=== PATIENT | female | born 1960 | race Caucasian/White ===

== ENCOUNTER 2016-05-23 07:53 | Emergency (ER) | payer OTHER ==
[~2016-05-23] VITALS: Ht 160 cm; Wt 66.0 kg
[~2016-05-23 07:53] MED LIST: LOSA25TA2 PO; NAPR220C2 PO; PROP60CA PO; SULF1TAB7 PO
[2016-05-23 07:54] VITALS: Ht 160 cm; Wt 66.0 kg
--- NOTE | 2016-05-23 10:17 | ERD ---
ER Documentation Chief Complaint Date/Time DATE: 05/23/16 TIME: 10:11 Chief Complaint bruise @ the right breast area HPI 56-year-old female presents to ED complaining of bruising in the medial aspect of the right breast. Patient stated that she first noticed it 6 days ago. She did not have any pain in the right breast. 2 days ago, she noticed a tender lump in the area of the bruising. She does not remember any trauma. Patient has history of rheumatoid arthritis. She had negative mammogram in February 2016. Denies any family history of breast cancer or any other type of cancer. Denies fever or chills. ROS All systems reviewed and are negative except as per history of present illness. Medications Home Meds Reported Medications Sulfamethoxazole-Trimethoprim* (Bactrim* DS) 1 Tab Tab, 1 TAB PO DAILY 11/19/12 Propranolol Hcl (Inderal LA) 60 Mg Capsr, 50 MG PO BID 11/14/12 Losartan Potassium* (Cozaar*) 25 Mg Tablet, 50 MG PO BID 11/14/12 Naproxen* (Aleve*) 220 Mg Capsule, 220 MG PO Y 10/12/12 Allergies Allergies: Coded Allergies: No Known Allergy (Unverified , 11/14/12) PMhx/Soc History of Surgery: Yes (breast reduction 83, appendectomy) Anesthesia Reaction: No Hx Neurological Disorder: No Hx Respiratory Disorders: No Hx Cardiac Disorders: Yes (htn) Hx Psychiatric Problems: No Hx Miscellaneous Medical Probl: Yes ( rheumatoid arthritis) Hx Alcohol Use: No Hx Substance Use: No Hx Tobacco Use: No Physical Exam Vitals Vital Signs Date Time Temp Pulse Resp B/P Pulse Ox O2 Delivery O2 Flow Rate FiO2 05/23/16 07:54 98.1 84 19 175/95 95 Physical Exam General impression: Well-developed, well-nourished. Alert, oriented, in no acute distress Head: Normocephalic, atraumatic. Respiration: Normal respiratory effort. Lungs clear to auscultate bilaterally. No wheezes, rales or rhonchi. Cardiovascular: Regular rate and rhythm. No murmurs or extra heart sounds. Abdomen: Abdomen normal to inspection. Nontender. No masses or organomegaly. Bowel sounds normal. Breasts: A 5 cm area of old ecchymosis noted on the medial aspect of the right breast. A 2-3 cm size firm, mobile mass noted within the border of the ecchymosis. Breast exam otherwise normal. No lymph nodes appreciated in the bilateral axilla. Neuro: Mental status normal, speech normal. STEEL FIXER grossly intact. Skin: Normal turgor. No rash or lesions. Psych: Normal mood and affect. Results 24 hrs PROCEDURE: Right breast ultrasound. CLINICAL INDICATION: Right breast palpable lesion and ecchymosis. TECHNIQUE: High-resolution sonography of the right breast was performed in the axial and sagittal planes. COMPARISON: No prior study is available for comparison. FINDINGS: At the site of the palpable lesion and ecchymosis in the 3 o'clock position of the right breast, there is a 3.3 x 0.8 x 1.1 cm complex mass with cystic and solid components. There is no other cystic or solid mass. The breast parenchyma is otherwise normal. IMPRESSION: 1. Complex mass with cystic and solid components measuring 3.3 x 0.8 x 1.1 cm in the 3 o'clock position of the right breast at the site of the palpable lesion and ecchymosis. This may be due to a hematoma. Neoplasm such as a papilloma cannot be excluded. 2. Any further management regarding this palpable lesion should be based upon clinical grounds. RPTAT: QQ .Slick Cunningham MD, MD Date Time Electronically viewed and signed by .Slick Cunningham MD, on 05/23/2016 12:21 .R/ CC: AGNIESZKA BLOCK LIMB DRIVER Procedures/MDM Well-appearing 56-year-old female presented to ED with contusion of the right breast. Breast ultrasound was obtained, a complex mass with cystic and solid components measuring 3.3 x 0.8 x 1.1 cm in the 3 o'clock position at the site of the palpable lesion and ecchymosis is noted on ultrasound. This may be due to hematoma. Neoplasm such as a papilloma cannot be excluded. Patient eloped before the ultrasound results had returned. I wish to the patient via telephone, and informed her of the ultrasound results. I advised patient to follow-up with her PCP for repeat ultrasound in about 2 weeks, and obtain a breast biopsy. Patient expressed understanding. Departure Diagnosis: Primary Impression: Contusion of breast, right Condition: Good AGNIESZKA BLOCK NP May 23, 2016 10:17
--- NOTE | 2016-05-23 12:21 | RADRPT ---
PROCEDURE: Right breast ultrasound. CLINICAL INDICATION: Right breast palpable lesion and ecchymosis. TECHNIQUE: High-resolution sonography of the right breast was performed in the axial and sagittal planes. COMPARISON: No prior study is available for comparison. FINDINGS: At the site of the palpable lesion and ecchymosis in the 3 o'clock position of the right breast, the re is a 3.3 x 0.8 x 1.1 cm complex mass with cystic and solid components. There is no other cystic or solid mass. The breast parenchyma is otherwise normal. IMPRESSION: 1. Complex mass with cystic and solid components measuring 3.3 x 0.8 x 1.1 cm in the 3 o'clock posi tion of the right breast at the site of the palpable lesion and ecchymosis. This may be due to a hem atoma. Neoplasm such as a papilloma cannot be excluded. 2. Any further management regarding this palpable lesion should be based upon clinical grounds. RPTAT: QQ .Slick Cunningham MD, MD Date Time Electronically viewed and signed by .Slick Cunningham MD, on 05/23/2016 12:21 .R/
== END 2016-05-24 06:29 | disposition left against medical advice (07) ==
LOC: FTE 07:53 → E/R 05-24 06:29
DX: S20.01XA Contusion of right breast, initial encounter (principal); I10 Essential (primary) hypertension; X58.XXXA Exposure to other specified factors, initial encounter; Y92.9 Unspecified place or not applicable
CPT/HCPCS: 76642; Z7502

== ENCOUNTER 2017-03-12 15:22 | Emergency (ER) | END 2017-03-12 18:46 | disposition home or self-care (01) ==

== ENCOUNTER 2018-04-12 21:45 | Emergency (ER) | payer OTHER ==
[~2018-04-12] VITALS: Ht 162.6 cm; Wt 66.8 kg
[~2018-04-12 21:45] MED LIST changes: +CIPR500T4 PO
[2018-04-12 21:54] VITALS: BP 147/75; PULSE 110; RESP 18; Ht 162.6 cm; Wt 66.8 kg
[2018-04-12] MEDS ORDERED: HYDR-4011 PO (23:07)
[2018-04-12] MEDS ORDERED: CIPR500T4 PO (23:07)
--- NOTE | 2018-04-12 23:10 | ERD ---
ER Documentation Chief Complaint Chief Complaint painful/burning urination/blood in urine x 1 day HPI 58-year-old female who presents complaining of dysuria and urinary frequency with some light spotting that began today. She has a history of frequent urinary tract infections in which she sees a urologist so she knows that she is getting a urine tract infection and wanted to get on top of this 1 early. She states Cipro works best for her. No fever. No nausea or vomiting. Secondarily she is complaining of pain in her upper extremities secondary to rheumatoid arth ritis. ROS All systems reviewed and are negative except as per history of present illness. Medications Home Meds Active Scripts Hydrocodone/Acetaminophen ([place] 5-325 Tablet) 1 Each Tablet, 1 EACH PO Q6, #15 TAB Prov:SEBASTIEN HERMOSILLO PA-C 04/12/18 Ciprofloxacin Hcl* (Ciprofloxacin Hcl*) 500 Mg Tablet, 500 MG PO BID, #14 TAB Prov:SEBASTIEN HERMOSILLO PA-C 04/12/18 Ciprofloxacin Hcl* (Ciprofloxacin Hcl*) 500 Mg Tablet, 500 MG PO BID for 10 Days, TAB Prov:ALENA AVINA 03/12/17 Reported Medications Sulfamethoxazole-Trimethoprim* (Bactrim* DS) 1 Tab Tab, 1 TAB PO DAILY 11/19/12 Propranolol Hcl (Inderal LA) 60 Mg Capsr, 50 MG PO BID 11/14/12 Losartan Potassium* (Cozaar*) 25 Mg Tablet, 50 MG PO BID 11/14/12 Naproxen* (Aleve*) 220 Mg Capsule, 220 MG PO PRN 10/12/12 Allergies Allergies: Coded Allergies: No Known Allergy (Unverified , 03/12/17) PMhx/Soc History of Surgery: Yes (breast surgery) Anesthesia Reaction: No Hx Neurological Disorder: No Hx Respiratory Disorders: No Hx Cardiac Disorders: Yes (htn) Hx Psychiatric Problems: No Hx Miscellaneous Medical Probl: Yes (uti) Hx Alcohol Use: No Hx Substance Use: No Hx Tobacco Use: No FmHx Family History: No diabetes Physical Exam Vitals Vital Signs Date Temp Pulse Resp B/P (MAP) Pulse Ox O2 O2 Flow FiO2 Time Delivery Rate 04/12/18 98.2 110 18 147/75 97 21:54 (99) Physical Exam INITIAL VITAL SIGNS: Reviewed by me GENERAL: Awake, alert and oriented x 4, well appearing, nontoxic, speaking in full sentences. No acute distress HEAD: Atraumatic NECK: Supple. No masses. Full range of motion. No meningismus. No midline tenderness. RESPIRATORY: Clear to auscultation bilaterally. Symmetric chest wall rise. No wheezing or rales. No accessory muscle use. CV: Regular rate and rhythm. No murmurs, rubs, or gallops. ABDOMEN: Soft, non-distended. Nontender. Negative [place]. Negative [place] point tenderness. No CVA tenderness bilaterally. No guarding. No rebound. EXTREMITIES: No clubbing or cyanosis. No edema. Moving all extremities normally. Procedures/MDM Urine sent for culture. Patient started on Cipro. Given small amount of [place] for her flareup of arthritic rheumatoid arthritis pain. Patient counseled regarding my diagnostic impression and care plan. Prior to discharge all questions answered. Pt agrees with treatment plan and understands strict return precautions. Pt is instructed to follow up with primary care provider within 24- 48 hours. Precautionary instructions provided including instructions to return to the ER if not improving or for any worsening or changing symptoms or concerns. Departure Diagnosis: Primary Impression: Dysuria Condition: Stable Patient Instructions: Dysuria Additional Instructions: Call your primary care doctor TOMORROW for an appointment during the next 1-2 days.See the doctor sooner or return here if your condition worsens before your appointment time. SEBASTIEN HERMOSILLO PA-C Apr 12, 2018 23:10
== END 2018-04-12 23:50 | disposition home or self-care (01) ==
LOC: FTE 21:45
DX: R30.0 Dysuria (principal); I10 Essential (primary) hypertension
CPT/HCPCS: 81003; 87086; Z7502; 99283

== ENCOUNTER 2018-04-22 17:43 | Emergency (ER) | payer OTHER ==
[~2018-04-22] VITALS: Ht 167.6 cm; Wt 66.6 kg
[~2018-04-22 17:43] MED LIST changes: +HYDR-4011 PO
[2018-04-22 17:46] VITALS: Ht 167.6 cm; Wt 66.6 kg
[2018-04-22 19:21] VITALS: BP 189/88; PULSE 90; RESP 20
[2018-04-22] MEDS ORDERED: CIPR500T4 PO (19:22)
--- NOTE | 2018-04-22 19:25 | ERD ---
ER Documentation Chief Complaint Chief Complaint Complains of urine problems Hx of UTI HPI 58-year-old female who presents to the emergency room complaining of dysuria urgency and frequency. The patient states that several weeks ago she was started on Cipro but a very short course. She states that she was recently started on Bactrim and still has symptoms of urinary frequency urgency and dysuria. She states recurrent episodes of cystitis. The only thing that usually works for her is 14 days of ciprofloxacin. She is requesting a prescription. She denies any fevers chills or flank pain. Blood pressure noted to be elevated no chest pain or strokelike symptoms. Patient has followed up with a urologist but not recently. ROS All systems reviewed and are negative except as per history of present illness. Medications Home Meds Active Scripts Ciprofloxacin Hcl* (Ciprofloxacin Hcl*) 500 Mg Tablet, 500 MG PO BID for 14 Days, TAB Prov:JOSE A GIL MD 04/22/18 Hydrocodone/Acetaminophen ([place] 5-325 Tablet) 1 Each Tablet, 1 EACH PO Q6, #15 TAB Prov:SEBASTIEN HERMOSILLO PA-C 04/12/18 Ciprofloxacin Hcl* (Ciprofloxacin Hcl*) 500 Mg Tablet, 500 MG PO BID, #14 TAB Prov:SEBASTIEN HERMOSILLO PA-C 04/12/18 Ciprofloxacin Hcl* (Ciprofloxacin Hcl*) 500 Mg Tablet, 500 MG PO BID for 10 Days, TAB Prov:ALENA AVINA 03/12/17 Reported Medications Sulfamethoxazole-Trimethoprim* (Bactrim* DS) 1 Tab Tab, 1 TAB PO DAILY 11/19/12 Propranolol Hcl (Inderal LA) 60 Mg Capsr, 50 MG PO BID 11/14/12 Losartan Potassium* (Cozaar*) 25 Mg Tablet, 50 MG PO BID 11/14/12 Naproxen* (Aleve*) 220 Mg Capsule, 220 MG PO PRN 10/12/12 Allergies Allergies: Coded Allergies: No Known Allergy (Unverified , 03/12/17) PMhx/Soc History of Surgery: Yes (breast surgery) Anesthesia Reaction: No Hx Neurological Disorder: No Hx Respiratory Disorders: No Hx Cardiac Disorders: Yes (htn) Hx Psychiatric Problems: No Hx Miscellaneous Medical Probl: Yes (uti) Hx Alcohol Use: No Hx Substance Use: No Hx Tobacco Use: No FmHx Family History: No diabetes Physical Exam Vitals Vital Signs Date Temp Pulse Resp B/P (MAP) Pulse Ox O2 O2 Flow FiO2 Time Delivery Rate 04/22/18 97.0 90 20 189/88 98 Room Air 19:21 (121) 04/22/18 97.0 88 20 201/88 98 17:46 (125) Physical Exam General: Well developed, well nourished, no acute distress Head: Normocephalic, atraumatic. Eyes: Pupils equally reactive, EOM intact ENT: Moist mucous membranes Neck: Supple, no lymphadenopathy Respiratory: Lungs clear bilaterally, no distress Cardiovascular: RRR, no murmurs, rubs, or gallops Abdominal: Soft, non-tender, non-distended, no peritoneal signs Back: No CVA tenderness : Deferred MSK: No edema, no unilateral swelling, 5/5 strength Neurologic: Alert and oriented, moving all extremities, normal speech, no focal weakness, no cerebellar signs Skin: No rash Psych: Normal mood Procedures/MDM The patient is requesting for a 2-week prescription for ciprofloxacin. We d iscussed the risk benefits and alternatives. I believe it is very possible that the patient has interstitial cystitis rather than recurrent urinary tract infections. I strongly recommend urology follow-up. Most recent culture results was mixed organisms. I believe a urinalysis and urine culture today would be reasonable. The patient is currently on Bactrim. I do not believe t his is consistent with pyelonephritis or systemic infection that would warrant inpatient hospitalization. This is a subacute and chronic issue for the patient. Patient's blood pressure is elevated but she states that she did not take her blood pressure medication today. No symptoms and no evidence of endorgan dysfunction. The patient can be safely discharged with strict return precautions discussed and understood by the patient. The patient does not have an identifiable emergent medical condition that warrants inpatient hospitalization at this time. The patient is deemed safe for discharge with outpatient follow-up. We discussed follow up with the patient's primary care doctor within 24 to 48 hours as needed. We also discussed return to the emergency room for worsening symptoms or worsening condition. Outpatient referral: Urology Discharge Medications: Cipro Departure Diagnosis: Primary Impression: UTI (urinary tract infection) Urinary tract infection type: acute cystitis Hematuria presence: without hematuria Qualified Codes: N30.00 - Acute cystitis without hematuria Additional Impressions: Interstitial cystitis Asymptomatic hypertensive urgency Condition: Stable Patient Instructions: Understanding Urinary Tract Infections (UTIs) Referrals: PRISCILLA OMALLEY MD Additional Instructions: Call your primary care doctor TOMORROW for an appointment during the next 1 WEEK.Tell the admin secretary that you were referred from this facility.See the doctor sooner or return here if your condition worsens before your appointment time. JOSE A GIL MD Apr 22, 2018 19:25
== END 2018-04-22 19:52 | disposition home or self-care (01) ==
LOC: E/R 17:43
DX: N30.10 Interstitial cystitis (chronic) without hematuria (principal); I10 Essential (primary) hypertension
CPT/HCPCS: 81001; 87086; Z7502; 99283

== ENCOUNTER 2018-05-06 18:30 | Emergency (ER) | payer OTHER ==
[~2018-05-06] VITALS: Wt 68.1 kg
--- NOTE | 2018-05-06 23:15 | ERD ---
ER Documentation Chief Complaint Chief Complaint bib self, cc: hematuria and dysuria for 2 weeks, HPI 58-year-old female, presents the emergency department, complaining of 2 weeks with persistent dysuria and hematuria, associated with pelvic pressure. Otherwise no fever, no chills, no nausea or vomiting. ROS All systems reviewed and are negative except as per history of present illness. Medications Home Meds Active Scripts Hydrocodone/Acetaminophen ([place] 5-325 Tablet) 1 Each Tablet, 1 TAB PO BID PRN for PAIN, #8 TAB Prov:PATI SHAH MD 05/07/18 Phenazopyridine Hcl* (Pyridium*) 200 Mg Tab, 200 MG PO TID PRN for URINARY PAIN, #6 TAB Prov:PATI SHAH MD 05/07/18 Nitrofurantoin Monohyd Macrocr* (Macrobid*) 100 Mg Capsr, 100 MG PO BID for 14 Days, #28 CAP Prov:PATI SHAH MD 05/07/18 Ciprofloxacin Hcl* (Ciprofloxacin Hcl*) 500 Mg Tablet, 500 MG PO BID for 14 Days, TAB Prov:JOSE A GIL MD 04/22/18 Hydrocodone/Acetaminophen ([place] 5-325 Tablet) 1 Each Tablet, 1 EACH PO Q6, #15 TAB Prov:SEBASTIEN HERMOSILLO PA-C 04/12/18 Ciprofloxacin Hcl* (Ciprofloxacin Hcl*) 500 Mg Tablet, 500 MG PO BID, #14 TAB Prov:SEBASTIEN HERMOSILLO PA-C 04/12/18 Ciprofloxacin Hcl* (Ciprofloxacin Hcl*) 500 Mg Tablet, 500 MG PO BID for 10 Days, TAB Prov:ALENA AVINA 03/12/17 Reported Medications Sulfamethoxazole-Trimethoprim* (Bactrim* DS) 1 Tab Tab, 1 TAB PO DAILY 11/19/12 Propranolol Hcl (Inderal LA) 60 Mg Capsr, 50 MG PO BID 11/14/12 Losartan Potassium* (Cozaar*) 25 Mg Tablet, 50 MG PO BID 11/14/12 Naproxen* (Aleve*) 220 Mg Capsule, 220 MG PO PRN 10/12/12 Allergies Allergies: Coded Allergies: No Known Allergy (Unverified , 03/12/17) PMhx/Soc History of Surgery: Yes (breast surgery) Anesthesia Reaction: No Hx Neurological Disorder: No Hx Respiratory Disorders: No Hx Cardiac Disorders: Yes (htn) Hx Psychiatric Problems: No Hx Miscellaneous Medical Probl: Yes (uti) Hx Alcohol Use: No Hx Substance Use: No Hx Tobacco Use: No Physical Exam Vitals Vital Signs Date Temp Pulse Resp B/P (MAP) Pulse Ox O2 O2 Flow FiO2 Time Delivery Rate 05/06/18 98.3 102 20 121/93 100 19:17 (102) Physical Exam Const: No acute distress Head: Atraumatic Eyes: Normal Conjunctiva ENT: Normal External Ears, Nose and Mouth. Neck: Full range of motion. No meningismus. Resp: Clear to auscultation bilaterally Cardio: Regular rate and rhythm, no murmurs Abd: Soft, non tender, non distended. Normal bowel sounds Skin: No petechiae or rashes Back: No midline or flank tenderness Ext: No cyanosis, or edema Neur: Awake and alert Psych: Normal Mood and Affect Result Diagram: 05/06/18 2325 05/06/18 2325 Results 24 hrs Laboratory Tests Test 05/06/18 23:25 White Blood Count 12.3 10^3/ul Red Blood Count 3.43 10^6/ul Hemoglobin 11.7 g/dl Hematocrit 36.2 % Mean Corpuscular Volume 105.5 fl Mean Corpuscular Hemoglobin 34.1 pg Mean Corpuscular Hemoglobin Concent 32.3 g/dl Red Cell Distribution Width 14.2 % Platelet Count 344 10^3/UL Mean Platelet Volume 8.8 fl Immature Granulocytes % 1.300 % Neutrophils % 61.3 % Lymphocytes % 26.2 % Monocytes % 7.9 % Eosinophils % 2.4 % Basophils % 0.9 % Nucleated Red Blood Cells % 0.0 /100WBC Immature Granulocytes # 0.160 10^3/ul Neutrophils # 7.5 10^3/ul Lymphocytes # 3.2 10^3/ul Monocytes # 1.0 10^3/ul Eosinophils # 0.3 10^3/ul Basophils # 0.1 10^3/ul Nucleated Red Blood Cells # 0.0 10^3/ul Urine Color RED Urine Clarity CLOUDY Urine pH 5.0 Urine Specific [place] 1.025 Urine Ketones NEGATIVE mg/dL Urine Nitrite NEGATIVE mg/dL Urine Bilirubin NEGATIVE mg/dL Urine Urobilinogen NEGATIVE mg/dL Urine Leukocyte Esterase TRACE Naya/ul Urine Microscopic RBC > 182 /HPF Urine Microscopic WBC 27 /HPF Urine Squamous Epithelial Cells FEW /HPF Urine Bacteria FEW /HPF Urine Hemoglobin 3+ mg/dL Urine Glucose NEGATIVE mg/dL Urine Total Protein 2+ mg/dl Sodium Level 142 mmol/L Potassium Level 3.5 mmol/L Chloride Level 113 mmol/L Carbon Dioxide Level 17 mmol/L Anion Gap 12 Blood Urea Nitrogen 20 mg/dl Creatinine 0.63 mg/dl Est Glomerular Filtrat Rate mL/min > 60 mL/min Glucose Level 97 mg/dl Calcium Level 9.1 mg/dl Current Medications Medications Dose Sig/Hector Start Time Status Last (Trade) Ordered Route PRN Stop Time Admin Dose Reason Admin Sodium 1,000 ml @ Q1H ONCE 05/06/18 DC 05/06/18 Chloride 1,000 mls/hr IV 23:30 05/07/18 23:37 00:29 Morphine 2 mg ONCE STAT 05/06/18 DC 05/06/18 Sulfate IV 23:16 05/06/18 23:36 (morphine) 23:17 Ceftriaxone 50 ml @ ONCE ONCE 05/06/18 DC 05/06/18 Sodium 100 mls/hr IVPB 23:30 05/06/18 23:36 23:59 200 mg ONCE ONCE 05/06/18 DC 05/06/18 Phenazopyridi PO 23:30 05/06/18 23:36 ne HCl 23:31 (Pyridium) Sodium 100 ml @ ud STK-MED 05/07/18 DC 05/07/18 Chloride ONCE .ROUTE 00:43 05/07/18 01:06 00:44 Iohexol 150 ml STK-MED 05/07/18 DC 05/07/18 (Omnipaque ONCE .ROUTE 00:43 05/07/18 01:06 300mg/ ml) 00:44 DIAGNOSTIC IMAGING REPORT Patient: SERENA SAWYER : 1960 Age: 58 Sex: F MR #: [id number] DOS: 05/06/182311 Ordering MD: PATI SHAH MD Location: [facility] Room/Bed: PROCEDURE: CT Abdomen and pelvis with contrast. CLINICAL INDICATION: Abdominal pain. TECHNIQUE: CT scan of the abdomen and pelvis with contrast was performed on a multi-detector high-resolution CT scanner. The patient was scanned following the uncomplicated administration of 100 cc of Omnipaque 300 intravenous contrast. Coronal and sagittal reformatted images were obtained from the axial source images. Images were reviewed on a high-resolution PACS workstation. DICOM images are available. One or more of the following dose reduction techniques were used: - Automated exposure control. - Adjustment of the mA and/or kV according to patient size. - Use of iterative reconstruction technique. Exam CTD/vol = 14.73 mGy. Total exam DLP = 831.29 mGy-cm. COMPARISON: 10/30/2012. FINDINGS: Evaluation of the lung bases demonstrates mild bibasilar atelectasis. Abdomen: The liver is normal in size. There is a cyst within the left lobe of the liver measuring 1.5 x 1.1 cm. There is no dilatation of the biliary tree. The gallbladder is not distended. The spleen, pancreas and bilateral adrenal glands are within normal limits. Bilateral kidneys are normal in size with symmetric enhancement. There are small renal cysts bilaterally. There is no hydronephrosis or hydroureter. There is no retroperitoneal adenopathy. The ab dominal aorta is of normal caliber. There is no abnormal bowel wall thickening or distension. There is no bowel obstruction or free air. The appendix is not visualized. There are few scattered colonic diverticuli without evidence of diverticulitis. There is no ascites. Pelvis: The bladder is unremarkable. The uterus and adnexa are within normal limits. There is no significant pelvic adenopathy or free fluid. Evaluation of the osseous structures demonstrates a lucent lesion along the anterior aspect of the left femoral head and neck pain with surrounding stranding and small joint effusion. There is a lucent lesion within the left superior acetabulum. There is old fracture/deformity of the right inferior pubic ramus. IMPRESSION: Lucent lesions within the left superior acetabulum and femoral head and neck with left hip joint space effusion and soft tissue swelling, new compared with 10/30/2012. Findings could represent degenerative subchondral cysts. Clinical correlation and follow-up is recommended to exclude osteomyelitis and septic joint. Few scattered colonic diverticuli without evidence of diverticulitis. Stable small hepatic cyst. Bilateral small renal cysts. Otherwise no acute abnormality identified within the abdomen and pelvis. .Vel Dobbins MD, MD Date Time Electronically viewed and signed by .Vel Dobbins MD, MD on 05/07/2018 01:27 Procedures/MDM Differential diagnosis include but not limited to: UTI, colitis, gastroenteritis, kidney stones, irritable bowel syndrome, inflammatory bowel syndrome, malabsorption syndrome, cholelithiasis, food intolerance, medication side effect, pancreatitis, diverticulitis, bowel obstruction. Low suspicion for acute abdomen Physical examination and clinical presentation consistent most likely with urinary tract infection. Results and clinical impression discussed with patient who agrees with management. The patient is stable to be treated outpatient and will be discharged home, some side effects of prescribed medications (headache, rash, nausea, vomiting, diarrhea, drowsiness, habituation, bleeding, hypertension, interactions with other medications) were reviewed. The patient was instructed to follow up with the primary care provider in the next 48h. If symptoms persist, worsen or new symptoms develop, then patient should return to the ED immediately. Instructions explained and given directly by me to the patient with acknowledgment and demonstrated understanding. Disclaimer: Inadvertent spelling and grammatical errors are likely due to EHR/dictation software use and do not reflect on the overall quality of patient care. Also, please note that the electronic time recorded on this note does not necessarily reflect the actual time of the patient encounter. Departure Diagnosis: Primary Impression: UTI (urinary tract infection) Condition: Stable Patient Instructions: Understanding Urinary Tract Infections (UTIs) Additional Instructions: Thank you very much for allowing us to participate in your care. Your health and safety is our top priority at [facility]. Call your primary care doctor TOMORROW for an appointment during the next 2-4 days and bring all the information and medications prescribed. Have prescriptions filled and follow precisely the directions on the label. If the symptoms get worse and your provider is unavailable, return to the E mergency Department immediately. PATI SHAH MD May 06, 2018 23:15
[2018-05-06] MEDS ORDERED: morphine 2 MG INJ IV STA (23:16)
[2018-05-06] MEDS ORDERED: CEFTRIAXONE 1 GM/50 ML (PMX) 50 ML IVPB ONE (23:30)
[2018-05-06] MEDS ORDERED: PHENAZOPYRIDINE 100 MG TAB PO ONE (23:30)
[2018-05-06] MEDS ORDERED: SOD CHLORIDE 0.9% 1,000 ML IV ONE (23:30)
[2018-05-07] MEDS ORDERED: IOHEXOL 300MG/ML 150 ML BTL ONE (00:43)
[2018-05-07] MEDS ORDERED: SOD CHLORIDE 0.9% 100 ML ONE (00:43)
[2018-05-07] MEDS ORDERED: NITR-58 PO (01:53)
[2018-05-07] MEDS ORDERED: PHEN-538 PO (01:53)
[2018-05-07] MEDS ORDERED: HYDR-4011 PO (01:53)
[2018-05-07 02:11] VITALS: BP 144/89; PULSE 80; RESP 19
== END 2018-05-07 02:14 | disposition home or self-care (01) ==
LOC: FTE 18:30
DX: N39.0 Urinary tract infection, site not specified (principal); I10 Essential (primary) hypertension
CPT/HCPCS: 36415; 74177; 80048; 81001; 85025; 87086; 96365; 96366; 96375; J0696; J2270; J7030; Q9967; Z7502; Z7610

== ENCOUNTER 2018-10-02 23:26 | Emergency (ER) | payer OTHER ==
[~2018-10-02] VITALS: Ht 162.6 cm; Wt 63.4 kg
[~2018-10-02 23:26] MED LIST changes: +AMOX1TAB10 PO; +NALO4SPR NS; +NITR-58 PO; +PHEN-538 PO
[2018-10-02 23:28] VITALS: BP 165/74; PULSE 81; RESP 18; Ht 162.6 cm; Wt 63.4 kg
[2018-10-03] MEDS ORDERED: METHYLPREDNISOLONE 125 MG INJ IM ONE (01:30)
[2018-10-03] MEDS ORDERED: HYDROCODONE/APAP (5/325) TAB PO ONE (01:30)
--- NOTE | 2018-10-05 23:37 | ERD ---
ER Documentation Chief Complaint Chief Complaint pain left hip on and off x 2 years, worse today, also c/o painful urination HPI 58yo F presents to the ED with multiple complaints. Pt complaining of left hip pain off and on x 2 years with associated knee pain increasing in severity over past few days. Pt scheduled for surgery on October 31, and states to receive cortisone injection to the joints for her pain. She is requesting a cortisone i njection at this time. Pt also complaining of dysuria and decreased urinary output x 3 days. She notes a hx of recurrent UTI's, and states presentation often similar to her current presentation. Pt also believes to have sustained a dog bite 2-3 days ago, however, states to "not remember if the dog bit" her." She states she was feeding dog and believes he may have bit her left hand, episode happened so quickly she does not remember. Pt notes her tetanus is UTD, which she received last year. She denies fevers, chills, nausea, vomiting, or swelling at site of bite. Pt is able to ambulate without loss of function to the effected extremities. ROS All systems reviewed and are negative except as per history of present illness. Medications Home Meds Active Scripts Amoxicillin/Potassium Clav (Amox-Clav 875-125 mg Tablet) 875-125 mg Tab, 1 TAB PO BID for 10 Days, #20 TAB Prov:SOULEYMANE NICHOLE PA-C 10/03/18 Naloxone HCl nasal spray (Narcan 4 mg/0.1 mL nasal) 4 Mg [place], 4 MG NS .Q2-3MIN for OPIOID OVERDOSE, #2 SPRAY 0 Refills [place] 0.1 mL into one nostril. Repeat with second device into other nostril after 2-3 minutes if no or minimal response Prov:SOULEYMANE NICHOLE PA-C 10/03/18 Hydrocodone/Acetaminophen ([place] 5-325 Tablet) 1 Each Tablet, 1 TAB PO Q6H PRN for PAIN, #12 TAB Prov:SOULEYMANE NICHOLE PA-C 10/03/18 Hydrocodone/Acetaminophen ([place] 5-325 Tablet) 1 Each Tablet, 1 TAB PO BID PRN for PAIN, #8 TAB Prov:PATI SHAH MD 05/07/18 Phenazopyridine Hcl* (Pyridium*) 200 Mg Tab, 200 MG PO TID PRN for URINARY PAIN, #6 TAB Prov:PATI SHAH MD 05/07/18 Nitrofurantoin Monohyd Macrocr* (Macrobid*) 100 Mg Capsr, 100 MG PO BID for 14 Days, #28 CAP Prov:PATI SHAH MD 05/07/18 Ciprofloxacin Hcl* (Ciprofloxacin Hcl*) 500 Mg Tablet, 500 MG PO BID for 14 Days, TAB Prov:JOSE A GIL MD 04/22/18 Hydrocodone/Acetaminophen ([place] 5-325 Tablet) 1 Each Tablet, 1 EACH PO Q6, #15 TAB Prov:SEBASTIEN HERMOSILLO PA-C 04/12/18 Ciprofloxacin Hcl* (Ciprofloxacin Hcl*) 500 Mg Tablet, 500 MG PO BID, #14 TAB Prov:SEBASTIEN HERMOSILLO PA-C 04/12/18 Ciprofloxacin Hcl* (Ciprofloxacin Hcl*) 500 Mg Tablet, 500 MG PO BID for 10 Days, TAB Prov:ALENA AVINA 03/12/17 Reported Medications Sulfamethoxazole-Trimethoprim* (Bactrim* DS) 1 Tab Tab, 1 TAB PO DAILY 11/19/12 Propranolol Hcl (Inderal LA) 60 Mg Capsr, 50 MG PO BID 11/14/12 Losartan Potassium* (Cozaar*) 25 Mg Tablet, 50 MG PO BID 11/14/12 Naproxen* (Aleve*) 220 Mg Capsule, 220 MG PO PRN 10/12/12 Discontinued Scripts Nitrofurantoin Monohyd Macrocr* (Macrobid*) 100 Mg Capsr, 100 MG PO BID for 7 Days, #14 CAP Prov:SOULEYMANE NICHOLE PA-C 10/03/18 Allergies Allergies: Coded Allergies: No Known Allergy (Unverified , 03/12/17) PMhx/Soc History of Surgery: Yes (C[place]ar Breast Reduction) Anesthesia Reaction: No Hx Neurological Disorder: No Hx Respiratory Disorders: No Hx Cardiac Disorders: Yes (HTN) Hx Psychiatric Problems: No Hx Miscellaneous Medical Probl: Yes (Chronic UTI) Hx Alcohol Use: No Hx Substance Use: No Hx Tobacco Use: No Smoking Status: Never smoker FmHx Family History: No diabetes, No coronary disease, No other Physical Exam Vitals Vital Signs Date Temp Pulse Resp B/P (MAP) Pulse Ox O2 O2 Flow FiO2 Time Delivery Rate 10/02/18 97.9 81 18 165/74 98 23:28 (104) Physical Exam Const: No acute distress Head: Atraumatic Eyes: Normal Conjunctiva ENT: Normal External Ears, Nose and Mouth. Neck: Full range of motion. No meningismus. Resp: Clear to auscultation bilaterally Cardio: Regular rate and rhythm, no murmurs Abd: Soft, non tender, non distended. Normal bowel sounds Skin: No petechiae or rashes. Superficial abrasion to the volar aspect of the left 5th metacarpal. No visible puncture wound. No warmth, no discharge, no surrounding erythema, no linear streaking. No fluctuance, no induration. Back: No midline or flank tenderness. Full ROM. Ext: No cyanosis, or edema. TPP left hip and knee, pain with passive ROM. Able to bear weight and ambulate appropriately. Pedal pulse 2+. Sensation intact to light touch. No erythema and calf tenderness. Negative avelino. Neur: Awake and alert Psych: Normal Mood and Affect Results 24 hrs Laboratory Tests Test 10/03/18 01:28 10/03/18 01:36 Urine Color YELLOW Urine Clarity CLEAR Urine pH 6.0 Urine Specific [place] 1.009 Urine Ketones NEGATIVE mg/dL Urine Nitrite NEGATIVE mg/dL Urine Bilirubin NEGATIVE mg/dL Urine Urobilinogen NEGATIVE mg/dL Urine Leukocyte Esterase TRACE Naya/ul Urine Microscopic RBC 2 /HPF Urine Microscopic WBC 13 /HPF Urine Squamous Epithelial Cells FEW /HPF Urine Bacteria FEW /HPF Urine Mucus FEW /HPF Urine Hemoglobin NEGATIVE mg/dL Urine Glucose NEGATIVE mg/dL Urine Total Protein NEGATIVE mg/dl Bedside Urine pH (LAB) 6.5 Bedside Urine Protein (LAB) Negative Bedside Urine Glucose (UA) Negative Bedside Urine Ketones (LAB) Negative Bedside Urine Blood Trace-lysed Bedside Urine Nitrite (LAB) Negative Bedside Urine Leukocyte Esterase (L Trace Current Medications Medications Dose Sig/Hector Start Time Status Last (Trade) Ordered Route PRN Stop Time Admin Dose Reason Admin 125 mg ONCE ONCE 10/03/18 DC 10/03/18 Methylprednis IM 01:30 10/03/18 01:42 olone Sodium 01:31 Succinate (Solu-Medrol) 1 tab ONCE ONCE 10/03/18 DC 10/03/18 Acetaminophen PO 01:30 10/03/18 01:42 / 01:31 Hydrocodone Bitart ([place] ()) Procedures/MDM MDM: This is a 58yo F who presents for chronic left hip and knee pain, UTI, and dog bite. Pt requesting cortisone joint injection at this time, I have advised her cortisone joint injection would need to be done by her current pain medicine physician or orthopedist, however, I could provide short course medications to help her pain while in ED. Pt unable to tolerate NSAIDS as she states to have "a hole" in her stomach. Pt received Solu-medrol injection and norco while in ED with improvement in pain upon reevaluation. Pt UA also showed traced leukocyte. I will be treating pt UTI and Dog bite with Augmentin so as to avoid overuse of antibiotics as pt has a hx of recurrent abx use. At this time I do not suspect fracture, septic joint, cellulitis, pyelonephritis, or other acute emergent process. Pt will be discharged home at this time with short course [place] for pain, CURES negative for recent opioid prescription and advised to f/u with pain management within the next 1-2 days. I have counseled regarding strict ED return precautions and pt is to return immediately if symptoms persist or worsen, or if new symptoms develop. Pt expressed verbal understanding and agreement to treatment plan. All questions addressed and answered. Departure Diagnosis: Primary Impression: Hip pain Laterality: left Qualified Codes: M25.552 - Pain in left hip Additional Impressions: Urinary tract infection Urinary tract infection type: acute cystitis Hematuria presence: without hematuria Qualified Codes: N30.00 - Acute cystitis without hematuria Dog bite Encounter type: initial encounter Qualified Codes: W54.0XXA - Bitten by dog, initial encounter Knee pain Chronicity: chronic Laterality: left Qualified Codes: M25.562 - Pain in left knee; G89.29 - Other chronic pain Condition: Stable Patient Instructions: Hip Precautions, Understanding Urinary Tract Infections (UTIs), Dog Bite SOULEYMANE NICHOLE PA-C Oct 05, 2018 23:37
== END 2018-10-03 02:32 | disposition home or self-care (01) ==
LOC: FTE 23:26
DX: M25.552 Pain in left hip (principal); I10 Essential (primary) hypertension; N30.00 Acute cystitis without hematuria; M25.562 Pain in left knee; S61.257A Open bite of left little finger without damage to nail, initial encounter; W54.0XXA Bitten by dog, initial encounter; Y92.9 Unspecified place or not applicable
CPT/HCPCS: 81001; 96372; J2930; Z7502; Z7610; 81003

== ENCOUNTER 2018-10-31 05:52 | Inpatient (IN) | payer OTHER ==
[2018-10-31] VITALS (30 sets, daily range): BP systolic 113–157; BP diastolic 57–86; PULSE 76–90; RESP 10–37; Ht 162.6 cm; Wt 62.8 kg
[~2018-10-31] VITALS: Ht 162.6 cm; Wt 62.8 kg
[~2018-10-31 05:52] MED LIST changes: +ATEN50TA PO; +ESTA1TAB PO; +FOLI-49 PO; +HYDR200T39 PO; +LOSA25TA12 PO; +MET25 PO; +PRED10TA PO
[2018-10-31] MEDS ORDERED: GABAPENTIN 300 MG CAP PO ONE (06:00)
[2018-10-31] MEDS ORDERED: CEFAZOLIN 2 GM/50 ML (PMX) 50 ML IVPB ONE (06:00)
[2018-10-31] MEDS ORDERED: LACTATED RINGER'S 1,000 ML IV SCH (06:00)
[2018-10-31] MEDS ORDERED: DEXAMETHASONE 1 MG TAB PO ONE (06:00)
[2018-10-31] MEDS ORDERED: TRANEXAMIC ACID 1GM/100ML(PMX) 100 ML IVPB ONE (06:00)
[2018-10-31] MEDS ORDERED: PROPOFOL 20 ML ONE (06:56)
[2018-10-31] MEDS ORDERED: CEFAZOLIN 1 GM INJ ONE (06:56)
[2018-10-31] MEDS ORDERED: MIDAZOLAM 1 MG/ML 2 ML INJ ONE (06:56)
[2018-10-31] MEDS ORDERED: FENTAnyl 50 MCG/ML VIAL ONE (06:56)
[2018-10-31] MEDS ORDERED: EPHEDrine 25 MG/5 ML SYG ONE (06:56)
[2018-10-31] MEDS ORDERED: morphine SULFATE/PF (10 MG/10 ML) INJ ONE (06:56)
[2018-10-31] MEDS ORDERED: PHENYLephrine (100 MCG/ML) 5ML SYG ONE (06:56)
[2018-10-31] MEDS ORDERED: ONDANSETRON 4 MG INJ ONE (06:57)
[2018-10-31] MEDS ORDERED: TRANEXAMIC ACID 1GM/100ML(PMX) 100 ML ONE ×2 (06:57)
[2018-10-31] MEDS ORDERED: HYDROCORTISONE 100 MG INJ ONE (06:57)
[2018-10-31] MEDS ORDERED: CA CHLORIDE (GM) 10% 10 ML INJ ONE (07:27)
[2018-10-31] MEDS ORDERED: THROMBIN 5000 UNIT (RECOTHROM) VIAL ONE (07:27)
[2018-10-31] MEDS ORDERED: POLYMYXIN/BACITRACIN 1L IRRIG ONE (07:27)
[2018-10-31] MEDS ORDERED: BUPIVACAINE 0.5% (SDV) 30 ML, morphine SULFATE (PF) 8 MG, EPINEPHrine 0.3 MG, KETOROLAC... IRR SCH ×7 (07:30)
[2018-10-31] MEDS ORDERED: SOD CHLORIDE 0.9% 100 ML, TRANEXAMIC ACID 3,000 MG IRR ONE ×2 (07:30)
[2018-10-31] MEDS ORDERED: ROPIVACAINE 0.5 % 30 ML VIAL ONE (07:32)
[2018-10-31] MEDS ORDERED: ROPIVACAINE 0.2% 20 ML VIAL ONE (08:04)
[2018-10-31] MEDS ORDERED: ONDANSETRON 4 MG INJ IV PRN ×2 (08:30→09:00)
[2018-10-31] MEDS ORDERED: FENTAnyl 50 MCG/ML VIAL IV PRN ×3 (08:30)
[2018-10-31] MEDS ORDERED: ALBUMIN HUMAN 5% 250 ML IV PRN (08:30)
[2018-10-31] MEDS ORDERED: MEPERIDINE 25 MG INJ IV PRN (08:30)
[2018-10-31] MEDS ORDERED: DIPHENHYDRAMINE 50 MG INJ IV PRN ×2 (08:30→09:00)
[2018-10-31] MEDS ORDERED: EPHEDrine 25 MG/5 ML SYG IV PRN (08:30)
[2018-10-31] MEDS ORDERED: HYDROmorphONE 1 MG/5 ML IV SYRINGE IV PRN (08:30)
[2018-10-31] MEDS: LACTATED RINGER'S 1,000 ML IV SCH ×3 (08:42→20:40)
[2018-10-31] MEDS ORDERED: ZOLPIDEM 5 MG TAB PO PRN (09:00)
[2018-10-31] MEDS ORDERED: NACL 0.9% 3 ML SYG IV SCH (09:00)
[2018-10-31] MEDS ORDERED: MAGNESIUM HYDROXIDE 30ML CUP PO PRN (09:00)
[2018-10-31] MEDS: ATENOLOL 50 MG TAB PO SCH (09:00)
[2018-10-31] MEDS: predniSONE 10 MG TAB PO SCH (09:00)
[2018-10-31] MEDS ORDERED: oxyCODONE 5 MG TAB PO PRN ×2 (09:00)
[2018-10-31] MEDS: SENNA/DOCUSATE NA (8.6MG/50MG) TAB PO SCH ×2 (09:00→20:38)
[2018-10-31] MEDS: LOSARTAN 25 MG TAB PO SCH (09:00)
[2018-10-31] MEDS: ACETAMINOPHEN 1000MG/100ML IV 100 ML IVPB SCH ×2 (10:17→17:29)
[2018-10-31] MEDS: CEFAZOLIN 1 GM/50 ML (PMX) 50 ML IVPB SCH ×2 (10:17→17:29)
[2018-10-31] MEDS ORDERED: GABAPENTIN 300 MG CAP PO SCH (21:00)
[2018-11-01] VITALS: BP 146/72; PULSE 102; RESP 20
[2018-11-01 00:10] VITALS: PULSE 86
[2018-11-01] MEDS: CEFAZOLIN 1 GM/50 ML (PMX) 50 ML IVPB SCH (01:03)
[2018-11-01] MEDS: ACETAMINOPHEN 1000MG/100ML IV 100 ML IVPB SCH (01:03)
[2018-11-01 04:30] VITALS: BP 132/69; PULSE 88; RESP 17
[2018-11-01] MEDS: HYDROmorphONE 1 MG/ML SYG IV PRN ×2 (07:51→14:20)
[2018-11-01 08:21] VITALS: BP 151/79; PULSE 89; RESP 18
[2018-11-01] MEDS: SENNA/DOCUSATE NA (8.6MG/50MG) TAB PO SCH (08:52)
[2018-11-01] MEDS: predniSONE 10 MG TAB PO SCH (08:52)
[2018-11-01] MEDS: ATENOLOL 50 MG TAB PO SCH (08:52)
[2018-11-01] MEDS: LOSARTAN 25 MG TAB PO SCH (08:53)
[2018-11-01] MEDS ORDERED: ASPIRIN (EC) 325 MG TAB PO SCH (09:00)
[2018-11-01] MEDS: oxyCODONE 5 MG TAB PO PRN ×2 (10:30→15:53)
[2018-11-01] MEDS: LACTATED RINGER'S 1,000 ML IV SCH (14:42)
[2018-11-01 14:48] VITALS: BP 145/68; PULSE 87; RESP 18
[2018-11-02] MEDS ORDERED: MAGNESIUM HYDROXIDE 30ML CUP PO SCH (21:00)
== END 2018-11-01 17:30 | disposition home or self-care (01) | DRG 470 ==
LOC: REC 05:52 → EDSTATUS 07:00 → MS1 11:07
PROVIDERS: ADMIT Orthopaedic Surgery; ATTEND Orthopaedic Surgery
PROC: 0SRB04A Replacement of Left Hip Joint with Ceramic on Polyethylene Synthetic Substitute, Uncemented, Open Approach (ICD-10-PCS; principal; 2018-10-31 07:00)
DX: M16.12 Unilateral primary osteoarthritis, left hip (principal); I10 Essential (primary) hypertension; E78.5 Hyperlipidemia, unspecified; M06.9 Rheumatoid arthritis, unspecified
CPT/HCPCS: 72170; 73530; 85025; 86999; 87086; 88304; 88311; 97116; 97161; 97530; C1713; C1776; J0131; J0171; J0690; J0735; J1170; J1200; J1720; J1885; J2250; J2274; J2370; J2405; J2795; J3010; J3370; J7120; J7512